=== PATIENT | female | born 1955 | race Caucasian/White ===

== ENCOUNTER 2017-03-25 22:35 | Emergency (ER) | payer BC, OTHER ==
[~2017-03-25] VITALS: Ht 167.6 cm; Wt 68.9 kg
[2017-03-25 22:39] VITALS: BP 138/90
== END 2017-03-26 00:18 | disposition home or self-care (01) ==
LOC: ED 23:00
DX: S93.491A Sprain of other ligament of right ankle, initial encounter (principal); S93.601A Unspecified sprain of right foot, initial encounter; W50.2XXA Accidental twist by another person, initial encounter; Y93.89 Activity, other specified; Y92.89 Other specified places as the place of occurrence of the external cause; Y99.8 Other external cause status
CPT/HCPCS: 99284